=== PATIENT | female | born 2005 | race Caucasian/White ===

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

== ENCOUNTER 2024-05-12 10:51 | Outpatient (CLI) | payer BC, OTHER | END 2024-05-12 10:52 | disposition home or self-care (01) | LOC: MRI 10:51 | PROVIDERS: ATTEND Internal Medicine Hematology & Oncology | DX: D50.0 Iron deficiency anemia secondary to blood loss (chronic) (principal); R16.1 Splenomegaly, not elsewhere classified; D73.4 Cyst of spleen | CPT/HCPCS: 74183 ==